=== PATIENT | male | born 1990 | race Caucasian/White ===

== ENCOUNTER 2024-05-10 06:37 | Emergency (ER) | payer OTHER, SELFPAY ==
[2024-05-10 06:42] VITALS: BP 138/97
--- NOTE | 2024-05-10 07:25 | ED.GENMED ---
History of Present Illness
General
Chief Complaint: Musculo-Skeletal Complaint
Source: patient and spouse
Exam Limitations: none
Time Seen by Provider: 05/10/24 07:23
Nursing documentation reviewed up to this point in time: agreed with
History of Present Illness
History of Present Illness:
34-year-old male without significant past medical history presenting to the emergency department today with concerns of left-sided medial malleolus discomfort after being hit by a hockey puck last night. Difficulty walking on this since then unable
to walk this morning secondary to pain. Denies any numbness weakness or additional concerns.
Review of Systems
Review of Systems
Allergies reviewed?: Yes
All Other Systems: ROS reviewed and negative except as documented in HPI and ROS
Phy Exam
Physical Exam
Physical Exam:
GENERAL: Alert , in no apparent distress
EYE: pupils equal and reactive
NECK: Supple, no significant adenopathy.
ENT: o/p clr, mmm.
CARDIAC: Regular rate and rhythm .
LUNGS: Clear breath sounds bilaterally, no acute respiratory distress, no wheezes/rales/rhonchi
ABDOMEN: Soft, without focal tenderness, no r/g, no cvat
NEUROLOGICAL: Alert and oriented, no focal neuro deficits
SKIN: Warm and dry, skin intact.
MUSCULOSKELETAL: Swelling tenderness palpation to the medial malleolus of the left otherwise no significant tender palpation or edema, well perfused.
PSYCH: Normal and appropriate interaction.
Course
Orders/Labs/Results
Orders:
Orders
05/10/24 06:46
Ankle, left 3 view CR [CR Ankle - Left Min 3 Views ] Urgent
Comment:
Reason For Exam: injury
05/10/24 07:24
Crutches-Treatment ONCE
Vital Signs
Initial and Last Documented VS:
Initial Vital Signs
Temp Pulse Resp BP Pulse Ox
98.9 F 101 20 138/97 100
05/10/24 06:42 05/10/24 06:42 05/10/24 06:42 05/10/24 06:42 05/10/24 06:42
Last Documented Vital Signs
Temp Pulse Resp BP Pulse Ox
98.9 F 101 20 138/97 100
05/10/24 06:42 05/10/24 06:42 05/10/24 06:42 05/10/24 06:42 05/10/24 06:42
Procedures
Splinting/Sling Placement
Left Medial Ankle:
Procedure completed by: Myself
Pre-splint extermity exam: neurovascular intact
Type of splint: sugar-tong and posterior short leg
Splint material: fiberglass
Splint checked by provider?: Yes
Normal distal neurovascular exam?: Yes
MDM/Problems Addressed
MDM/Problems Addressed:
34-year-old male present department today with concerns of medial ankle left ankle after being hit by a hockey puck last night. Difficulty ambulating secondary to pain today. Denies numbness weakness or additional concerns. Neurovascularly intact
on examination patient's x-ray showing ankle fracture. Patient was splinted otherwise will follow-up with orthopedics. Return precautions given.
*Critical Care Note
Total Time (30-74mins, 75-104mins- exclusive of procedures): Not Applicable
ED Attending Note
-
Portions of this chart may have been created with voice recognition software.� Occasional wrong word or��sound alike� substitutions may have occurred due to the inherent limitations of voice recognition software.
Discharge Plan
Departure
Patient Disposition: Home (Routine Discharge)
Date of Disposition: 05/10/24
Time of Disposition: 07:25
Patient with high blood pressure during this ER visit?: No
Condition: Good
Covid-19: Not Applicable
Discharge Problem:
Fracture of distal end of left tibia
Instructions: Ankle Fracture (DC)
Prescriptions:
No Action
lidocaine [Aspercreme (lidocaine)] 1 PATCH adhesive patch,medicated
1 patch S DAILY Qty: 7 0RF
Rx Instructions:
remove after 12 hours
hydrocodone-acetaminophen 1 TABLET tablet
1 tab PO Q4HPRN PRN (Reason: pain ) Qty: 12 0RF
hydrocodone-acetaminophen 1 TABLET tablet
1 tab PO Q4HPRN PRN (Reason: pain) Qty: 12 0RF
Referrals:
Jax Encarnacion MD [Active] - Follow up in 5-7 days
Stand Alone Forms: Return to Work
Activity Restrictions/Additional Instructions:
You came to the emergency department today with concerns of an ankle injury. You are found to have a fracture to your distal tibia. Please rest ice compress and elevate until orthopedic follow-up in 1 week. Return to the emergency department for
any worsening, new or concerning symptoms.
Interventions
Interventions:
*Risk Screen - Suicide Last Done: 05/10/24 06:42
*General Assessment Last Done: 05/10/24 06:42
*Neglect/Abuse Screening Last Done: 05/10/24 06:42
ED- Fall Risk Assessment Last Done: 05/10/24 06:42
*ED COVID-19 Vaccine History Last Done: 05/10/24 06:42
Discharge Date and Time
Print Language: FAROESE
[2024-05-10 08:00] VITALS: BP 128/72
== END 2024-05-10 08:00 | disposition home or self-care (01) ==
LOC: EMR 06:37
PROVIDERS: EMERGENCY PHYSICIAN Emergency Medicine
DX: S82.302A Unspecified fracture of lower end of left tibia, initial encounter for closed fracture (principal); X58.XXXA Exposure to other specified factors, initial encounter
CPT/HCPCS: 99283; 29515; 73610